=== PATIENT | female | born 1970 | race African-American/Black ===

== ENCOUNTER 2016-07-06 15:47 | Emergency (ER) | payer OTHER | END 2016-07-06 18:58 | disposition home or self-care (01) | LOC: FER 15:47 | DX: S16.1XXA Strain of muscle, fascia and tendon at neck level, initial encounter (principal); S46.912A Strain of unspecified muscle, fascia and tendon at shoulder and upper arm level, left arm, initial encounter; Z88.6 Allergy status to analgesic agent; V43.52XA Car driver injured in collision with other type car in traffic accident, initial encounter; Y92.481 Parking lot as the place of occurrence of the external cause | CPT/HCPCS: 72040; 73030; 99283 ==